=== PATIENT | male | born 1955 | race Two or more races ===

== ENCOUNTER 2018-04-03 10:44 | Day surgery (SDC) | payer OTHER ==
[2018-02-16 14:19] VITALS: BMI 32.3
[2018-04-03] MEDS ORDERED: MIDAZOLAM HCL 2 MG/2 ML SINGLE DOSE VIAL ONE (13:28)
[2018-04-03] MEDS ORDERED: DEXAMETHASONE SOD PHOSPHATE 4 MG/1 ML VIAL ONE (13:32)
--- NOTE | 2018-04-03 14:16 | OP ---
Operative Note - Note: Operative Date: 04/03/18 Pre-Operative Diagnosis: R renal stone Operation: Right ESWL Findings: 6 mm lower pole kidney stone Post-Operative Diagnosis: Same as Pre-op Surgeon: Jet Richards Anesthesia: Fractional Estimated Blood Loss (mls): 0
[2018-04-03 14:18] VITALS: TEMP 98.2
[2018-04-03 16:34] VITALS: BP 127/75; PULSE 70
--- NOTE | 2018-05-07 15:02 | OP ---
DATE OF OPERATION: 04/03/2018 PREOPERATIVE DIAGNOSIS: Right renal stone. POSTOPERATIVE DIAGNOSIS: Right renal stone. PROCEDURE: Extracorporeal shockwave lithotripsy. ATTENDING: Natalia Aleman MD ANESTHESIA: Fractional. OPERATION: The patient was brought in the operating room, placed in a supine position on the operating room table. Ultrasonography and fluoroscopy were performed. A 6-mm right lower pole stone was identified. Anesthesia and preoperative antibiotics were then administered. Shockwave lithotripsy was performed. Excellent fragmentation of the stone was noted under real-time ultrasonography and fluoroscopy. No complications were noted. The patient tolerated the procedure very well. NATALIA ALEMAN M.D. /[id number]
== END 2018-04-03 15:45 | disposition home or self-care (01) ==
LOC: JASU-SURG 10:44
PROVIDERS: ATTEND Urology
PROC: 0TF3XZZ Fragmentation in Right Kidney Pelvis, External Approach (ICD-10-PCS; principal; 2018-04-03 11:45)
DX: N20.0 Calculus of kidney (principal)
CPT/HCPCS: 82962; 94760

== ENCOUNTER 2020-10-13 10:57 | Emergency (ER) | payer OTHER ==
[2020-10-13 11:04] VITALS: BP 142/82; PULSE 95; TEMP 98.2; BMI 31.6
[2020-10-13] MEDS ORDERED: IBUPROFEN 400 MG TABLET (FP) PO ONE ×2 (11:47→11:56)
== END 2020-10-13 12:15 | disposition home or self-care (01) ==
LOC: JERFT 10:57
DX: S43.402A Unspecified sprain of left shoulder joint, initial encounter (principal)
CPT/HCPCS: 73030-TC-LT-FY; 99283-25

== ENCOUNTER 2021-08-28 08:08 | Day surgery (SDC) | payer OTHER ==
[2021-08-20 12:31] VITALS: BMI 37.0
[2021-08-28] MEDS ORDERED: MIDAZOLAM HCL 2 MG/2 ML SINGLE DOSE VIAL ONE (09:47)
[2021-08-28] MEDS ORDERED: ROPIVACAINE HCL/PF 100 MG/20 ML VIAL ONE (09:47)
[2021-08-28] MEDS ORDERED: BUPIVACAINE HCL/EPINEPHRINE/PF 30 ML VIAL IJ ONE (09:54)
[2021-08-28] MEDS ORDERED: ceFAZolin SODIUM 1 GM VIAL ONE (10:13)
[2021-08-28] MEDS ORDERED: LIDOCAINE HCL/PF 2% SDV 5ML VIAL ONE (10:13)
[2021-08-28] MEDS ORDERED: PROPOFOL 20 ML ONE (10:14)
[2021-08-28] MEDS ORDERED: ROCURONIUM BROMIDE 50 MG/5 ML SYRINGE ONE (10:33)
[2021-08-28] MEDS ORDERED: DEXAMETHASONE SOD PHOSPHATE 4 MG/1 ML VIAL ONE (10:58)
[2021-08-28] MEDS ORDERED: ONDANSETRON 4 MG/2 ML VIAL ONE (10:58)
[2021-08-28] MEDS ORDERED: HYDROmorphone HCL/PF 1 MG/ML VIAL ONE (11:45)
[2021-08-28] MEDS ORDERED: GLYCOPYRROLATE 0.2 MG/1 ML VIAL ONE (11:52)
[2021-08-28] MEDS ORDERED: NEOSTIGMINE METHYLSULFATE 0.5 MG/1 ML - 10 ML MDV ONE (11:52)
[2021-08-28] MEDS ORDERED: oxyCODONE HCL 5 MG TABLET PO PRN (12:30)
[2021-08-28] MEDS ORDERED: IBUPROFEN 800 MG/8 ML IJ IVPB PRN (12:30)
[2021-08-28] MEDS ORDERED: ONDANSETRON 4 MG/2 ML VIAL IVPUSH PRN (12:30)
[2021-08-28] MEDS ORDERED: LACTATED RINGERS SOLUTION 1,000 ML IV SCH (12:30)
[2021-08-28] MEDS ORDERED: oxyCODONE HCL 5 MG TABLET ONE (13:56)
[2021-08-28 14:45] VITALS: BP 133/77; PULSE 85; TEMP 97.4
== END 2021-08-28 14:45 | disposition home or self-care (01) ==
LOC: FASU 08:08
PROVIDERS: ATTEND Orthopaedic Surgery
PROC: 0RBK4ZZ Excision of Left Shoulder Joint, Percutaneous Endoscopic Approach (ICD-10-PCS; 2021-08-28)
PROC: 0LQ24ZZ Repair Left Shoulder Tendon, Percutaneous Endoscopic Approach (ICD-10-PCS; principal; 2021-08-28 11:05)
PROC: 0RNK4ZZ Release Left Shoulder Joint, Percutaneous Endoscopic Approach (ICD-10-PCS; 2021-08-28 11:05)
DX: M75.112 Incomplete rotator cuff tear or rupture of left shoulder, not specified as traumatic (principal); M67.814 Other specified disorders of tendon, left shoulder; S43.432A Superior glenoid labrum lesion of left shoulder, initial encounter; M65.812 Other synovitis and tenosynovitis, left shoulder; M75.02 Adhesive capsulitis of left shoulder; M19.012 Primary osteoarthritis, left shoulder; S42.295A Other nondisplaced fracture of upper end of left humerus, initial encounter for closed fracture; X58.XXXA Exposure to other specified factors, initial encounter; Y93.9 Activity, unspecified; Y92.9 Unspecified place or not applicable
CPT/HCPCS: 82962; 94760